=== PATIENT | female | born 1945 | race Caucasian/White ===

== ENCOUNTER 2017-12-09 16:47 | Inpatient (IN) | payer MEDICAID, OTHER ==
[~2017-12-09] VITALS: Ht 167.6 cm; Wt 103.0 kg
--- NOTE | 2017-12-09 16:47 | NUR ---
Pt placed in bed 1 by Fredrick ROLON
--- NOTE | 2017-12-09 16:50 | NUR ---
Patient resting, c/c of discomfort and swelling to left arm, left breast, and bilateral lower extremities. Patient came in by EMS. Patient has no notable signs of distress at this time. Vital signs are within normal limits. 121/69, 89 Hr, rr 17, and 96%. Patient daughter aware of ER visit.
--- NOTE | 2017-12-09 16:51 | NUR ---
ER at bedside examining patient.
[2017-12-09 16:57] VITALS: BP_SYST 204
[2017-12-09] MEDS ORDERED: ASPIRIN 81 MG TAB.CHEW PO ONE (17:00)
--- NOTE | 2017-12-09 17:01 | NUR ---
Patient refused aspirin at this time. Patient educated. Refused.
[2017-12-09 17:29] LABS: BASOPHILS % (AUTO) 0.6 % (0.0-2.0); EOSINOPHILS # (AUTO) 0.1 K/uL (0.0-0.4); EOSINOPHILS % (AUTO) 1.8 % (0.0-4.0); HEMATOCRIT 29.2 % (36-48); HEMOGLOBIN 9.1 g/dL (12.0-16.0); LYMPHOCYTES # (AUTO) 1.9 K/uL (1.0-5.5); MEAN CORPUSCULAR HEMOGLOBIN 28 pg (27-31); MEAN CORPUSCULAR HGB CONC 31 % (32-36); MEAN CORPUSCULAR VOLUME 91 fL (79.0-98.0); MONOCYTES # (AUTO) 0.5 K/uL (0.0-1.0); MONOCYTES % (AUTO) 7.7 % (1.7-9.3); NEUTROPHILS # (AUTO) 4.5 K/uL (1.8-7.7); NEUTROPHILS % (AUTO) 62.9 % (40.0-70.0); PLATELET COUNT (AUTO) 290 K/uL (130-430); RED BLOOD CELL COUNT(AUTO) 3.23 MIL/uL (4.2-6.2); RED CELL DISTRIBUTION WIDTH 14.1 % (9.0-15.0)
[2017-12-09 17:41] LABS: ANION GAP 5 (5-15); CALCIUM 8.4 mg/dL (8.4-11.0); CHLORIDE 111 mmol/L (98-107); CREATININE 0.95 mg/dL (0.55-1.30); GLUCOSE 117 mg/dL (70-99); POTASSIUM 3.6 mmol/L (3.5-5.1); SODIUM SERUM 144 mmol/L (136-145); UREA NITROGEN, BLOOD 22 mg/dL (8-21)
[2017-12-09 17:46] LABS: ALANINE AMINOTRANSFERASE 15 U/L (12-78); ALBUMIN 1.8 g/dL (3.4-4.8); ASPARTATE AMINOTRANSFERASE 21 U/L (10-37); LIPASE 86 U/L (73-393); TOTAL BILIRUBIN 0.4 mg/dL (0.0-1.0)
--- NOTE | 2017-12-09 18:40 | NUR ---
Patient resting comfortably. Needs are met at this time. Patient provided water, pillow, and blanket per patient request.
[2017-12-09] MEDS ORDERED: ONDANSETRON HCL 4 MG/2 ML VIAL IVP PRN (19:45)
--- NOTE | 2017-12-09 20:07 | NUR ---
ADMISSION NOTE Received patient from ER via fabi, received report from ELEAZAR LANCE. Patient admitted with diagnosis of CHF. Patient oriented to hospital routine, call light, toileting and safety-patient verbalized understanding.
[2017-12-09 20:14] VITALS: BP_SYST 194
--- NOTE | 2017-12-09 20:29 | NUR ---
Patient admitted to [address]. Patients daughters Tamiko and Smiley called to notify. Patient aware that Tamiko will be here tonight to visit. Patient updated on status and reason for admission.
--- NOTE | 2017-12-09 20:45 | NUR ---
Initial Notes Received patient resting in bed, awake, alert, oriented. Patient denies any acute distress or pain when asked. Vital signs stable, elevated blood pressure noted. Breathing is even and unlabored. Received patient from ER without IV access. Incontinence care and hygiene care provided. Educated patient regarding use of call light for assistance and fall precautions, patient verbalized understanding. Call light in hand, fall precautions in place. Will continue to monitor for changes and safety.
[2017-12-09] MEDS: FUROSEMIDE 20 MG TABLET PO SCH (20:47)
[2017-12-09] MEDS: METOPROLOL TARTRATE 25 MG TABLET PO SCH (20:47)
[2017-12-09] MEDS: NORMAL SALINE 5 ML DISP.SYRIN IVF SCH ×2 (20:48→21:39)
--- NOTE | 2017-12-09 20:54 | NUR ---
Consultation Called Reason for consultation: CHF Was consult called: Y Person who was notified: Tatiana Consulting Physician: Buck Brown Scrap Metal Collector Ordering Physician: Alisha Cooley
--- NOTE | 2017-12-09 22:00 | NUR ---
Nursing Notes Patient resting in bed, awake watching TV. Patient denies any acute distress or pain at this time. Breathing is even and unlabored. Attempted to start IV access unsuccessfully x2. Patient requesting IV to be started in the AM, educated patient importance of having IV access, patient continue to refuse at this time. Needs addressed. Call light in hand, fall precautions in place.
--- NOTE | 2017-12-10 | NUR ---
Nursing Notes Patient resting in bed with eyes closed, easily aroused. Patient denies any acute distress, pain, or needs at this time. Repositioned patient for comfort. Call light in hand, fall precautions in place.
[2017-12-10 00:11] VITALS: BP_SYST 185
--- NOTE | 2017-12-10 01:36 | NUR ---
MD Communications S/W Dr. Abraham regarding patient's elevated BP. Orders received. Will enter and carry out.
[2017-12-10] MEDS: cloNIDine HCL 0.1 MG TABLET PO PRN ×3 (01:51→20:46)
--- NOTE | 2017-12-10 02:16 | NUR ---
Nursing Notes Patient resting in bed, awake watching TV. Patient denies any acute distress or pain at this time. Breathing is even and unlabored. Medicated patient for elevated BP per MD orders. IV access obtained at right AC, #22, aseptic tech used, patent, good blood return noted, flushes with ease. Needs addressed. Call light in hand, fall precautions in place.
[2017-12-10 04:08] VITALS: BP_SYST 163
--- NOTE | 2017-12-10 04:42 | NUR ---
Nursing Notes Patient resting in bed with eyes closed, easily aroused. Patient denies any acute distress, breathing is even and unlabored. Repositioned patient for comfort. Needs addressed. Call light in hand, fall precautions in place. Will continue to monitor.
[2017-12-10] MEDS: NORMAL SALINE 5 ML DISP.SYRIN IVF SCH ×3 (05:17→23:21)
--- NOTE | 2017-12-10 06:35 | NUR ---
Closing Notes Patient resting in bed, awake. Patient denies any acute distress or pain when asked. Breathing is even and unlabored. IV site patent/clean/dry, no S/S infection/infiltration noted. Incontinence care provided. Needs addressed throughout shift. Call light in hand, fall precautions in place. Will continue to monitor for changes and safety, and endorse all patient care/needs to oncoming nurse.
[2017-12-10 06:57] LABS: BASOPHILS % (AUTO) 0.5 % (0.0-2.0); EOSINOPHILS # (AUTO) 0.2 K/uL (0.0-0.4); HEMATOCRIT 24.5 % (36-48); HEMOGLOBIN 7.8 g/dL (12.0-16.0); LYMPHOCYTES # (AUTO) 2.2 K/uL (1.0-5.5); MEAN CORPUSCULAR HEMOGLOBIN 29 pg (27-31); MEAN CORPUSCULAR HGB CONC 32 % (32-36); MEAN CORPUSCULAR VOLUME 90 fL (79.0-98.0); MONOCYTES # (AUTO) 0.6 K/uL (0.0-1.0); MONOCYTES % (AUTO) 10.2 % (1.7-9.3); NEUTROPHILS # (AUTO) 3.2 K/uL (1.8-7.7); NEUTROPHILS % (AUTO) 50.3 % (40.0-70.0); PLATELET COUNT (AUTO) 242 K/uL (130-430); RED BLOOD CELL COUNT(AUTO) 2.72 MIL/uL (4.2-6.2); RED CELL DISTRIBUTION WIDTH 14.4 % (9.0-15.0); WHITE BLOOD COUNT (AUTO) 6.2 K/uL (4.8-10.8)
[2017-12-10 07:03] LABS: ALANINE AMINOTRANSFERASE 11 U/L (12-78); ALBUMIN 1.4 g/dL (3.4-4.8); ANION GAP 6 (5-15); ASPARTATE AMINOTRANSFERASE 16 U/L (10-37); CALCIUM 7.9 mg/dL (8.4-11.0); CHLORIDE 113 mmol/L (98-107); CHOLESTEROL 124 mg/dL (<200); CREATININE 0.98 mg/dL (0.55-1.30); GLUCOSE 108 mg/dL (70-99); HDL CHOLESTEROL 56 mg/dL (>55); LDL CHOLESTEROL 53 mg/dL (<100); POTASSIUM 3.5 mmol/L (3.5-5.1); SODIUM SERUM 145 mmol/L (136-145); TOTAL BILIRUBIN 0.3 mg/dL (0.0-1.0); TRIGLYCERIDES 94 mg/dL (30-150); UREA NITROGEN, BLOOD 21 mg/dL (8-21)
--- NOTE | 2017-12-10 07:45 | NUR ---
A/Ox4, a-fib on monitor, HR 70s-80s. David ROMANO, #22, SL. On 2L NC. Instructed field representative/health education light, POC, and safety measures. Call light in place, bed locked at the lowest position, will continue to monitor. Call light in place, bed locked at the lowest position, will continue to monitor.
[2017-12-10 08:00] VITALS: BP_SYST 203
--- NOTE | 2017-12-10 08:11 | NUR ---
Nutrition Update Sammy Scale 14 noted. Pt admitted for CHF Diet: 2gm Na diet BMI: 36.8 kg/m2 RD to follow per nutrition care standards.
[2017-12-10] MEDS: METOPROLOL TARTRATE 25 MG TABLET PO SCH ×2 (08:32→20:42)
[2017-12-10] MEDS: FUROSEMIDE 20 MG TABLET PO SCH (08:33)
[2017-12-10] MEDS ORDERED: ASPIRIN 81 MG TAB.CHEW PO SCH (09:00)
[2017-12-10] MEDS ORDERED: ENOXAPARIN SODIUM 40 MG/0.4 ML SYRINGE SUBCUT SCH (09:00)
[2017-12-10] MEDS ORDERED: LISINOPRIL 10 MG TABLET (PRINIVIL) PO SCH (09:00)
--- NOTE | 2017-12-10 10:22 | NUR ---
[facility] consult called: for Dr. Russo, regarding CHF, ordered by Dr. Rodriguez, spoke with Monet.
--- NOTE | 2017-12-10 10:30 | NUR ---
Daughter at bedside to see patient. Current condition is informed to her.
--- NOTE | 2017-12-10 12:20 | NUR ---
Patient is eating lunch, no signs of distress noted.
[2017-12-10 12:30] VITALS: BP_SYST 118
[2017-12-10] MEDS: LEVOFLOXACIN 500 MG/D5W 100 ML IV SCH (13:25)
--- NOTE | 2017-12-10 14:40 | NUR ---
Patient had passed urine in the bed, and refused to be changed by PROTOTYPE CARPENTER and RN. She stated that " you guys have disrupted my sleep! It's my turn!". Also refused BP meds despite of systolic pressure at 190s. Will monitor closely.
[2017-12-10 15:03] VITALS: BP_SYST 198
--- NOTE | 2017-12-10 16:12 | NUR ---
Patient is cleaned and repositioned for comfort.
--- NOTE | 2017-12-10 18:12 | NUR ---
Patient is eating dinner, no signs of distress noted.
--- NOTE | 2017-12-10 19:25 | NUR ---
REPORT: RECEIVED BEDSIDE REPORT FROM ELEAZAR CASEY. PATIENT IN BED AWAKE ORIENTED X3.DENIES SOB NOR CHEST PAIN THIS TIME.
[2017-12-10 20:05] VITALS: BP_SYST 204
--- NOTE | 2017-12-10 20:10 | NUR ---
INITIAL NOTES: PATIENT COMPLAINING OF IV SALINE LOCK. THAT NOBODY CAN TOUCH HER IV UNLESS SHE OR HE IS GOOD AT IT.COMPLAINING ABOUT HER SWOLLEN LEFT EXTREMITIES AND LOWER LEGS .ASKING WHAT ALL DOCTORS ARE DOING TO HER. REASSURE AND EMOTIONAL SUPPORT PROVIDED. TEARFUL.REFUSING VITAL SIGNS TAKEN BUT ABLE TO CONVINCE HER. MOVES HER ARM WHILE BP TAKEN. ELEVATED EXPLAIN TO CALM DOWN. RETOOK STILL ELEVATED. EXPLAIN WILL GIVE DUE BP MEDS.BP 204/83 HR 68. 94% ROOM AIR. HAS MULTIPLE BRUISES TO UPPER ARMS, BLISTERS TO LOWER LEGS.CALL LIGHT WITHIN REACH ,BED IN LOW POSITION, SINUS RHYTHM THIS TIME. WILL MONITOR CLOSELY.PLACED EXTENSION TO SALINE LOCK ,GAINED CONFIDENCE FROM HER.
--- NOTE | 2017-12-10 20:40 | NUR ---
MEDS ADMIN: DUE MEDS GIVEN AFTER AN EXTENSIVE EXPLANATIONS OF EFFECTS AND SIDE EFFECTS OF EACH THEN AGREED TO TAKE THEM. REFUSE OXYGEN THIS TIME.
[2017-12-10] MEDS: FUROSEMIDE 40 MG/4 ML VIAL IVP SCH (20:41)
[2017-12-10] MEDS: APIXABAN 2.5 MG TABLET PO SCH (20:44)
[2017-12-10] MEDS ORDERED: FUROSEMIDE 20 MG TABLET PO SCH (21:00)
--- NOTE | 2017-12-10 21:10 | NUR ---
CONTINUE WATCHING TV SHOWS. DENIES SOB.
--- NOTE | 2017-12-10 22:00 | NUR ---
INCONTINENT OF URINE. REFUSE HYGIENE. SAID IF YOU ARE STILL HERE I WILL CALL THE THE POLICE.
--- NOTE | 2017-12-10 23:00 | NUR ---
RESTING QUIETELY BUT EASILY AROUSED. COMPLAINING OF TOO MUCH NOISE IN THE ROOM.
[2017-12-11 00:59] VITALS: BP_SYST 196
--- NOTE | 2017-12-11 01:35 | NUR ---
PATIENT AWAKENED.COMPLAIN OF HER ROOM MATE MOANING AND GROANING THUS CAN NOT SLEEP. BP 200/76. HR 58. CLONIDINE 0.1MG PO GIVEN. INCONTINENT OF URINE. REFUSE HYGIENE. SAID NEED A SLEEP.
--- NOTE | 2017-12-11 02:00 | NUR ---
ROOM MATE TRANSFERRED TO ANOTHER ROOM. PATIENT THANKFUL.
[2017-12-11] MEDS: cloNIDine HCL 0.1 MG TABLET PO PRN ×4 (02:19→21:44)
--- NOTE | 2017-12-11 04:00 | NUR ---
PATIENT RESTING QUITELY WITH EYES CLOSE. NO DISTRESS.
--- NOTE | 2017-12-11 05:25 | NUR ---
HYGIENE: PATIENT INCONTINENT OF URINE AND MOD.STOOL. AGREED TO BE CHANGED. Dnae SIMONSD APPLIED TO PERINEAL AREAS AND ABDOMINAL FOLDS REFUSING BP CHECKS.
[2017-12-11] MEDS: NORMAL SALINE 5 ML DISP.SYRIN IVF SCH ×3 (05:50→21:44)
--- NOTE | 2017-12-11 06:50 | NUR ---
CLOSING: NO ACUTE DISTRESS. HR WENT UP TO70- 80 WHILE AWAKE AND ACTIVITIES.REFUSING TO ANSWER QUESTIONS..LITTLE UPSET. WILL ENDORSE TO AM RN FOR FURTHER CARE.
--- NOTE | 2017-12-11 07:35 | NUR ---
spoke to MIMI DAUGHTER #[phone] ABOUT HOME MEDS TO BRING THEM FOR RECONCILIATION. STATED SHE WILL BRING THIS AM.
[2017-12-11] MEDS: FUROSEMIDE 40 MG/4 ML VIAL IVP SCH ×2 (08:09→21:40)
[2017-12-11] MEDS: METOPROLOL TARTRATE 25 MG TABLET PO SCH ×2 (08:10→21:41)
[2017-12-11] MEDS: APIXABAN 2.5 MG TABLET PO SCH ×2 (08:11→21:42)
[2017-12-11 08:13] LABS: ANION GAP 2 (5-15); CALCIUM 8.1 mg/dL (8.4-11.0); CHLORIDE 111 mmol/L (98-107); CREATININE 0.95 mg/dL (0.55-1.30); GLUCOSE 112 mg/dL (70-99); SODIUM SERUM 144 mmol/L (136-145); UREA NITROGEN, BLOOD 20 mg/dL (8-21)
[2017-12-11 08:20] VITALS: BP_SYST 212
--- NOTE | 2017-12-11 08:33 | NUR ---
OPENING NOTE REPORT IS RECEIVED FROM HAND FILER BALANCE WHEEL NURSE AND CARE IS ENDORSED TO MYSELF. PT IS RECEIVED AWAKE, ALERT, AND ORIENTED TO NAME, PLACE AND . MORNING VS SHOW ELEVATED HIGH BLOOD PRESSURE AND MORNING MEDICATIONS WERE GIVEN BY MOUTH ONE-BY-ONE AND TOLERATED WELL. WHITE BOARD IS UPDATED AND PLAN OF CARE IS DISCUSSED. PT HAS PITTING EDEMA IN LEFT ARM AND LEG. PT WAS REPOSITIONED TO LEFT SIDE. CURRENT NEEDS ARE MET. BED IS AT LOWEST POSITION, CALL LIGHT WITHIN REACH, THREE SIDE RAILS UP, BED ALARM IS ON. WILL CONTINUE TO MONITOR.
[2017-12-11] MEDS ORDERED: LISINOPRIL 10 MG TABLET (PRINIVIL) PO SCH (09:00)
[2017-12-11 09:54] LABS: BASOPHILS % (AUTO) 0.9 % (0.0-2.0); EOSINOPHILS # (AUTO) 0.1 K/uL (0.0-0.4); EOSINOPHILS % (AUTO) 2.8 % (0.0-4.0); HEMATOCRIT 26.2 % (36-48); HEMOGLOBIN 8.2 g/dL (12.0-16.0); LYMPHOCYTES # (AUTO) 2.3 K/uL (1.0-5.5); MEAN CORPUSCULAR HEMOGLOBIN 28 pg (27-31); MEAN CORPUSCULAR HGB CONC 31 % (32-36); MEAN CORPUSCULAR VOLUME 91 fL (79.0-98.0); MONOCYTES # (AUTO) 0.5 K/uL (0.0-1.0); MONOCYTES % (AUTO) 8.8 % (1.7-9.3); NEUTROPHILS # (AUTO) 2.3 K/uL (1.8-7.7); NEUTROPHILS % (AUTO) 43.5 % (40.0-70.0); PLATELET COUNT (AUTO) 248 K/uL (130-430); RED BLOOD CELL COUNT(AUTO) 2.89 MIL/uL (4.2-6.2); RED CELL DISTRIBUTION WIDTH 14.3 % (9.0-15.0); WHITE BLOOD COUNT (AUTO) 5.2 K/uL (4.8-10.8)
--- NOTE | 2017-12-11 10:51 | NUR ---
ROUNDS PT IS AWAKE AND ALERT. NO SIGNS OR SYMPTOMS OF DISTRESS OR SOB. PT DENIES ANY PAIN. CURRENT NEEDS ARE MET. BED IS AT LOWEST POSITION, CALL LIGHT WITHIN REACH, THREE SIDE RAILS UP, BED ALARM IS ON. WILL CONTINUE TO MONITOR.
[2017-12-11] MEDS: LEVOFLOXACIN 500 MG/D5W 100 ML IV SCH (11:03)
--- NOTE | 2017-12-11 11:16 | NUR ---
PT REFUSES PRN BLOOD PRESSURE MEDICATION PT HAS BEEN ADVISED OF ELEVATED BLOOD PRESSURE AND THE NEED FOR PRN CLONIDINE. PT REFUSED AFTER THREE ATTEMPTS OF TRYING TO GIVE BLOOD PRESSURE MEDICATION. MD MADE AWARE. CURRENT NEEDS ARE MET. BED IS AT LOWEST POSITION, CALL LIGHT WITHIN REACH, THREE SIDE RAILS UP, BED ALARM IS ON. WILL CONTINUE TO MONITOR.
[2017-12-11] MEDS ORDERED: METOLAZONE 5 MG TABLET PO ONE (11:30)
[2017-12-11 12:00] VITALS: BP_SYST 190
--- NOTE | 2017-12-11 12:05 | NUR ---
ROUNDS PT IS AWAKE AND ALERT. NO SIGNS OR SYMPTOMS OF DISTRESS OR SOB. PT ACCEPTED TO TAKE PRN CLONIDINE. WILL REASSESS BLOOD PRESSURE IN ONE HOUR. PT REFUSED TO BE REPOSITIONED EVEN AFTER BEING ADVISED OF BENEFITS OF CIRCULATION. CURRENT NEEDS ARE MET. BED IS AT LOWEST POSITION, CALL LIGHT WITHIN REACH, THREE SIDE RAILS UP, BED ALARM IS ON. WILL CONTINUE TO MONITOR.
--- NOTE | 2017-12-11 13:57 | NUR ---
PHYSICAL THERAPY CO-SIGN The Physical Therapy Progress Notes documented by Auricular Therapist have been reviewed. Reviewed/Co-Signed by: Bijal Hussein PT Documentation Done by: JAUN TANNER PTA PT WAS ABLE TO CLEAR BUTTOCKS OFF BED BUT STILL HAS WEAKNESS UNABLE TO COME TO A FULL UPRIGHT STATIC STANDING POSTURE. Addendum: 12/11/17 at 1358 by Bijal Hussein PT Amended: Links added.
--- NOTE | 2017-12-11 14:22 | NUR ---
ROUNDS PT IS SLEEPING. NO SIGNS OR SYMPTOMS OF DISTRESS OR SOB NOTED. PT WAS REPOSITIONED TO LEFT SIDE. CURRENT NEEDS ARE MET. BED IS AT LOWEST POSITION, CALL LIGHT WITHIN REACH, THREE SIDE RAILS UP, BED ALARM IS ON. WILL CONTINUE TO MONITOR.
[2017-12-11] MEDS ORDERED: POTASSIUM CHLORIDE 20 MEQ TAB.PRT.SR PO ONE (14:30)
[2017-12-11 16:20] VITALS: BP_SYST 208
--- NOTE | 2017-12-11 16:34 | NUR ---
ROUNDS PT IS AWAKE AND ALERT. NO SIGNS OR SYMPTOMS OF DISTRESS OR SOB NOTED. PT DENIES ANY PAIN. CURRENT NEEDS ARE MET. BED IS AT LOWEST POSITION, CALL LIGHT WITHIN REACH, THREE SIDE RAILS UP, BED ALARM IS ON. WILL CONTINUE TO MONITOR.
--- NOTE | 2017-12-11 18:57 | NUR ---
CLOSING NOTE PT IS IN BED RESTING. PT IS UPSET DUE TO DINNER NOT BEING WHAT SHE WANTED. KITCHEN CALLED AND ASKED FOR DIFFERENT FOOD BUT PT IS STILL UPSET. CURRENT NEEDS ARE MET. BED IS AT LOWEST POSITION, CALL LIGHT WITHIN REACH, THREE SIDE RAILS UP, BED ALARM IS ON. WILL CONTINUE TO MONITOR UNTIL CARE AND REPORT IS GIVEN TO RIGHT OF WAY SUPERVISOR NURSE.
--- NOTE | 2017-12-11 19:20 | NUR ---
OPENING NOTE Received report from Iris. Patient resting in bed awake, alert, oriented x4. Breathing unlabored and even on room air. No signs of distress. Fall and safety precautions in place. Bed in lowest position, brake on, alarm on, call light within reach. Patient upset and disagreeing with myself and day shift nurse about medication. Educated patient on the importance of taking her prescribed meds for her elevated BP. Patient finally took medication after much convincing. Patient upset and asking when the doctor will be here. Informed her MD will make rounds tomorrow. Will continue to monitor.
[2017-12-11] MEDS: SPIRONOLACTONE 25 MG TABLET (ALDACTONE) PO SCH (19:29)
[2017-12-11] MEDS ORDERED: SPIRONOLACTONE 25 MG TABLET (ALDACTONE) PO SCH (19:30)
[2017-12-11 20:00] VITALS: BP_SYST 210
--- NOTE | 2017-12-11 20:00 | NUR ---
family at the bedside
--- NOTE | 2017-12-11 21:49 | NUR ---
Med pass. Administered PRN clonodine PO for elevated BP.
--- NOTE | 2017-12-11 22:00 | NUR ---
Charge nurse Dalia at the bedside. Patient complaining that she cannot talk due to the medication I gave her. Patient is clearly talking without any issues.
--- NOTE | 2017-12-11 22:45 | NUR ---
Patient yelling from room that monitors are too loud. Informed her that the monitors cannot be turned off. Patient upset.
--- NOTE | 2017-12-11 23:00 | NUR ---
Patient constantly yelling from her bed. Addressed her concerns. Patient stated "Do you hear that?! That beeping is too loud and I cannot sleep. The doctor told me it needs to be shut off. You need to shut it off!" Informed patient that the beeping she hears is the heart monitors and that the beeping cannot be shut off. Patient continue to argue with me and insisted the MD told her we could turn off the monitors. Re-educated patient on the importance of the heart monitors. Offered patient ear plugs, patient reluctant to try them. Patient still loud and yelling. Informed patient she cannot be yelling and that other patients are trying to sleep. Patient states "YOU ARE THE ONE YELLING!!"
--- NOTE | 2017-12-11 23:40 | NUR ---
HAIR SPECIALIST attempted to do midnight vitals on patient. Patient refused. I then went in to educate patient on the importance of checking her vitals, especially her BP due to her severe hypertension and reminded her that I gave he BP meds and we need to see if they are working. Patient finally agreed to have vitals taken. Patient continues to make rude comments towards myself and the HAIR SPECIALIST.
[2017-12-12 00:18] VITALS: BP_SYST 209
--- NOTE | 2017-12-12 01:15 | NUR ---
Patient resting in bed with eyes closed. No signs of distress, no needs at this time. Fall and safety precautions in place. Bed in lowest position, brake on, alarm on, call light within reach. Bed in lowest position, brake on, alarm on, call light within reach. Will continue to monitor.
[2017-12-12] MEDS: NORMAL SALINE 5 ML DISP.SYRIN IVF SCH ×3 (06:10→20:56)
--- NOTE | 2017-12-12 07:20 | NUR ---
Opening Note: Patient laying in bed resting. Patient denies pain and discomfort. Breathing is even and unlabored with no distress noted. IV patent and intact and saline locked. Safety precautions in place; bed in lowest position, wheels locked, side rails x3, bed alarm activated and call light within reach. Will continue to monitor throughout shift.
[2017-12-12 08:13] VITALS: BP_SYST 199
[2017-12-12] MEDS: APIXABAN 2.5 MG TABLET PO SCH ×2 (08:20→20:49)
[2017-12-12] MEDS: METOPROLOL TARTRATE 25 MG TABLET PO SCH ×2 (08:21→20:48)
[2017-12-12] MEDS: SPIRONOLACTONE 25 MG TABLET (ALDACTONE) PO SCH (08:22)
[2017-12-12] MEDS: FUROSEMIDE 40 MG/4 ML VIAL IVP SCH ×2 (08:22→20:46)
[2017-12-12] MEDS: LISINOPRIL 20 MG TABLET PO SCH (08:22)
--- NOTE | 2017-12-12 10:15 | NUR ---
Rounding: Patient laying in bed resting, repositioned for comfort. No distress noted. No needs at this time. Will continue to monitor
[2017-12-12] MEDS: LEVOFLOXACIN 500 MG/D5W 100 ML IV SCH (10:34)
[2017-12-12] MEDS: FUROSEMIDE 100 MG in D5W 90 ML IV SCH (11:06)
[2017-12-12] MEDS: cloNIDine HCL 0.1 MG TABLET PO PRN ×2 (11:11→17:18)
[2017-12-12 12:00] VITALS: BP_SYST 215
--- NOTE | 2017-12-12 12:15 | NUR ---
Rounding: Patient laying in bed resting. Patient denies pain and discomfort. Breathing is even and unlabored with no distress noted. Morning medications tolerated well. Safety precautions in place. No needs at this time. Will continue to monitor.
--- NOTE | 2017-12-12 14:17 | NUR ---
Rounding: Patient laying in bed resting. Patient denies pain and discomfort. Breathing is even and unlabored with no distress noted. NO needs at this time. Will continue to monitor.
--- NOTE | 2017-12-12 15:08 | NUR ---
PHYSICAL THERAPY CO-SIGN The Physical Therapy Progress Notes documented by Commercial Service Technician have been reviewed. Reviewed/Co-Signed by: Bijal Hussein PT Documentation Done by: JAUN TANNER PERSONAL INJURY PARALEGAL PT CONTINUES TO DEMONSTRATE FUNCTIONAL THERA EX FOR TRUNKAL STABILIZATION, STILL LIMITED WITH STANDING ACTIVITY Addendum: 12/12/17 at 1509 by Bijal Hussein PT Amended: Links added.
[2017-12-12 15:19] LABS: ANION GAP 5 (5-15); CALCIUM 8.3 mg/dL (8.4-11.0); CHLORIDE 108 mmol/L (98-107); CREATININE 1.06 mg/dL (0.55-1.30); GLUCOSE 174 mg/dL (70-99); POTASSIUM 3.1 mmol/L (3.5-5.1); SODIUM SERUM 143 mmol/L (136-145); UREA NITROGEN, BLOOD 19 mg/dL (8-21)
--- NOTE | 2017-12-12 16:10 | NUR ---
Rounding: Patient laying in bed resting. Patient denies pain and discomfort. Breathing is even and unlabored with no distress noted. IV lasix drip running per MD order, no signs of infiltration. Safety precautions in place. No needs at this time. Will continue to monitor.
[2017-12-12 16:15] VITALS: BP_SYST 187
--- NOTE | 2017-12-12 17:18 | NUR ---
Clonidine Given: BP elevated 187/94. Administered Clonidine PRN per MD order.
--- NOTE | 2017-12-12 18:43 | NUR ---
Closing Note: Patient laying in bed resting. Patient denies pain and discomfort. Breathing is even and unlabored with no distress noted. IV patent and intact running Lasix drip per MD order. Safety precautions in place; bed in lowest position, wheels locked, side rails x3, bed alarm activated and call light within reach. All needs met. Will endorse plan of care to NOC, nurse.
--- NOTE | 2017-12-12 19:25 | NUR ---
REPORT: RECEIVED BEDSIDE REPORT FROM ELEAZAR VÁZQUEZ.PATIENT IN BED AWAKE ORIENTED X3,MOVES RIGHT EXTREMITIES ONLY. CONVERSANT.
[2017-12-12 19:45] VITALS: BP_SYST 208
--- NOTE | 2017-12-12 19:45 | NUR ---
INITIAL NOTES: VITAL SIGNS TAKEN. BP ELEVATED DENIES HEADACHE NOR PAIN. VERY ANXIOUS ABOUT SWELLING TO ARMS AND LEG THAT ARE NOT SUBSIDING.CLONIDINE NOT DUE. WILL MONITOR CLOSELY. HAVING SNACKS. DAUGHTER JUST CAME FOR VISITS AND BROUGHT SOME CANDIES AND CRACKERS. CONVERSED FOR 1/2 AN HOUR LEFT DUE TO PATIENT IS GETTING AGITATED. LEFT ARM 3+SWOLLEN WELL BOTH LOWER LEGS.HEPARIN DRIP INFUSING AT 5ML/HR =5MG /HR. TO RFA SITE WITH SMALL BRUISE. CALL LIGHT WITHIN REACH. BED IN LOW POSITION. DISCUSSED HAVING POT TABLET FOR LOW K LEVEL.AGREE TO TAKE THIS TIME.SINUS SHI CARDIA ,BBB,IST DEGREE AV BLOCK.COMPLAINING ABOUT TREATMENTS NOT WORKING.REASSURANCES AND EMOTIONAL SUPPORT PROVIDED.
[2017-12-12] MEDS: POTASSIUM CHLORIDE 20 MEQ TAB.PRT.SR PO SCH (20:45)
--- NOTE | 2017-12-12 20:45 | NUR ---
MEDS ADMIN: ALL DUE MEDS GIVEN WITHOUT DIFFICULTY AFTER EXPLAINING INDICATIONS OF EACH .
--- NOTE | 2017-12-12 21:15 | NUR ---
HYGIENE: PARTIAL BATH DONE WITH JOHANNA CARE .HAD STOOL AND URINE INCONTINENCE. Dane SARABIA APPLIED.
--- NOTE | 2017-12-12 22:30 | NUR ---
WATCHING TV SHOWS,COMPLAINING OF ROOM MATE TOO NOISY.
--- NOTE | 2017-12-13 | NUR ---
POTASSUIM: PATIENT REFUSE 2ND DOSE POTASSUIM PO DUE TO STOMACH UPSET. DISCUSSED NEED OF IT DUE TO LOW K LEVEL.YELLED AT RN SAYING I TOLD YOU I DONT WANT IT .I DONT CARE ,I WANT TO SLEEP.
[2017-12-13 00:23] VITALS: BP_SYST 198
--- NOTE | 2017-12-13 01:50 | NUR ---
BP ELEVATED: PATIENT AWAKENED DUE TO ROOM MATE NOISE. BP 191/77 HR 56 SAT 96%. REFUSING CLONIDINE BUT ABLE TO CONVINCE DUE TO SMALL PILL. SAID WHO EVER ORDERED THAT PILL IT DOES NOT WORK, MY BP IS ALWAYS HIGH. TOOK PILL AFTER.
[2017-12-13] MEDS: cloNIDine HCL 0.1 MG TABLET PO PRN ×2 (01:55→11:42)
--- NOTE | 2017-12-13 02:30 | NUR ---
AWAKENED DUE TO ROOM MATE NOISE. OFFERED POTASSUIM PO. GOT UPSET WITH LOUD VOICE SAYING I TOLD YOU IM NOT TAKING THAT BIG PILLS ITS UPSET MY STOMACH. OFFERED CRACKERS.REFUSE MEDS AND SNACKS.
[2017-12-13] MEDS: FUROSEMIDE 100 MG in D5W 90 ML IV SCH (03:15)
--- NOTE | 2017-12-13 04:25 | NUR ---
ROUNDS: PATIENT CONTINUE TO SLEEP. ON ROOM AIR. LASIX DRIP INFUSING WELL. CALL LIGHT WITHIN REACH.
--- NOTE | 2017-12-13 05:20 | NUR ---
WOKE PATIENT UP. GOT VERY UPSET. OFFERED POTASSUIM PO AND HYGIENE ,TOTALLY REFUSED BOTH.
[2017-12-13] MEDS: NORMAL SALINE 5 ML DISP.SYRIN IVF SCH ×3 (05:52→21:26)
--- NOTE | 2017-12-13 06:12 | NUR ---
Pagerolo Dueñas, regional account manager for Dr. Rodriguez dialed [phone], s/w Soumya
--- NOTE | 2017-12-13 06:22 | NUR ---
DR. HILARIO CALLED BACK.NOTIFIED MD ABOUT PATIENT REFUSING 2ND DOSE OF POTASSUIM PO AT MIDNIGHT AND NO LABS ORDERED. MD ORDER LABS THIS MORNING. INFORMED LAB TO DRAW.
--- NOTE | 2017-12-13 06:40 | NUR ---
RENTAL CAR FERRY DRIVER PARVIZ LOONEY LABS ORDERED.
--- NOTE | 2017-12-13 06:45 | NUR ---
CLOSING: SEEN PATIENT AFTER LAB DRAW.OFFERED HYGIENE AND POTASSUIM PO. STILL REFUSE. ALL NEEDS WERE ATTENDED BUT FEW REFUSES.NO ACUTE CARDIOPULMONARY DISTRESS. LASIX DRIP IN PROGRESS ,SITE CLEAR.REFUSE TO BE CHANGED UNDER PADS.CALL LIGHT NEAR BY. BED IN LOW POSITION. REFUSE VITAL SIGNS TAKEN THIS TIME. WILL ENDORSE TO AM RN FOR CONTINUITY OF CARE.
[2017-12-13 07:27] LABS: CALCIUM 8.1 mg/dL (8.4-11.0); CHLORIDE 108 mmol/L (98-107); CREATININE 1.04 mg/dL (0.55-1.30); GLUCOSE 123 mg/dL (70-99); UREA NITROGEN, BLOOD 17 mg/dL (8-21)
[2017-12-13 08:00] VITALS: BP_SYST 166
--- NOTE | 2017-12-13 08:00 | NUR ---
Opening Note received report from skin care specialist RN, pt resting in bed, A&Ox4, respirations even and unlabored on room air, pt denies any pain, no acute distress noted, IV site clean, dry, and intact, tele monitor in place, pt educated on use of call light and asked to call for assistance, pt verbalized understanding, call light in reach, bed in low position, bed alarm on, room close to nurses station, fall and aspiration precautions in place.
[2017-12-13 08:26] LABS: ANION GAP 3 (5-15); SODIUM SERUM 143 mmol/L (136-145)
--- NOTE | 2017-12-13 08:50 | NUR ---
Rounds Dr. Rodriguez at beside speaking with ptMD made aware of AM lab of potassium 3.0.
[2017-12-13] MEDS: LISINOPRIL 20 MG TABLET PO SCH (08:51)
[2017-12-13] MEDS: METOPROLOL TARTRATE 25 MG TABLET PO SCH (08:51)
[2017-12-13] MEDS: SPIRONOLACTONE 25 MG TABLET (ALDACTONE) PO SCH (08:51)
[2017-12-13] MEDS: FUROSEMIDE 40 MG/4 ML VIAL IVP SCH ×2 (08:52→21:22)
[2017-12-13] MEDS: APIXABAN 2.5 MG TABLET PO SCH ×2 (08:52→21:23)
--- NOTE | 2017-12-13 09:04 | NUR ---
Rapid Response pts heart rate 184 BPM, BP 204/111, pt anxious, complaint of chest pain, pt appears restless, no shortness of breath, respirations 19, called rapid response. Rapid response team at bedside, Dr. Michael sheth MD aware of rapid response, Dr. Jerardo headley. Blood sugar 158, EKG ordered. Dr. Rodriguez ordered morphine 2mg, cardizem 10mg IV given, BP 204/111 prior to cardizem administration. HR went down to 130 after administration of cardizem. Pt relaxed, no acute distress noted, assessed pt for chest pain, pt stated, "just get out". Heart rate 113 BPM, will continue to monitor pt.
--- NOTE | 2017-12-13 09:11 | NUR ---
WOODWIND INSTRUMENT REPAIRER, DR CAMACHO WAS PAGED, RE: ELEVATED/HIGH HR (UNCONTROLLED AFIB WITH RVR). SPOKE TO BERNARDO
[2017-12-13] MEDS ORDERED: LORazepam 2 MG/ML VIAL IVP ONE (09:15)
[2017-12-13] MEDS ORDERED: DILTIAZEM HCL 25 MG/5 ML VIAL IVP ONE (09:15)
[2017-12-13] MEDS ORDERED: MORPHINE 2 MG/ML INJ. SYRINGE IVP ONE (09:15)
[2017-12-13] MEDS ORDERED: MAGNESIUM SULFATE 50 ML IV ONE ×2 (09:15→14:15)
[2017-12-13] MEDS: POTASSIUM CHLORIDE 20 MEQ TAB.PRT.SR PO SCH ×3 (09:15→13:15)
[2017-12-13] MEDS ORDERED: LORazepam 2 MG/ML VIAL ONE (09:18)
[2017-12-13] MEDS ORDERED: MORPHINE 2 MG/ML INJ. SYRINGE ONE (09:20)
--- NOTE | 2017-12-13 09:55 | NUR ---
RN Rounds pt resting in bed, A&Ox4, no acute distress noted, pt requesting to be left alone, HR 110 on cloth finishing range operator chief, fall and aspiration precautions in place.
--- NOTE | 2017-12-13 10:15 | NUR ---
Refused meds pt refusing potassium replacement for potassium 3.0, pt educated on use and side effects of potassium replacement, pt refusing, pt stated "come back later", fall and aspiration precautions in place.
--- NOTE | 2017-12-13 10:35 | NUR ---
Education/Refused medication pt BP 181/106, PRN catapres indicated, pt educated on use and side effects of PRN catapres, pt refusing medication, pt educated on use and side effects of potassium replacement, pt refusing potassium replacement, fall and aspiration precautions in place.
--- NOTE | 2017-12-13 10:46 | NUR ---
Spoke with pts daughter spoke with pts daughter, Tamiko, updated her on pts plan of care, educated Tamiko on importance of PRN catapres for elevated BP and potassium replacement, Tamiko spoke with pt, pt refusing medication at this time, pt stated "leave me alone, come back later", fall and aspiration precautions in place.
--- NOTE | 2017-12-13 11:19 | NUR ---
Spoke with Spoke with Dr. Rodriguez, made MD aware of pt BP 181/106, HR 111, potassium 3.0, and that pt is refusing PRN BP medication and potassium replacement, no new orders.
[2017-12-13] MEDS ORDERED: NOR10 PO (11:23)
[2017-12-13] MEDS ORDERED: APIX5TAB4 PO (11:23)
[2017-12-13] MEDS ORDERED: METF1000 PO (11:23)
[2017-12-13] MEDS ORDERED: FERR-69 PO (11:23)
[2017-12-13] MEDS ORDERED: ASPIRIN PO (11:23)
[2017-12-13] MEDS ORDERED: HYDR-4039 PO (11:23)
[2017-12-13] MEDS ORDERED: CAT.1 PO (11:23)
[2017-12-13] MEDS ORDERED: LISI-600 PO (11:23)
[2017-12-13] MEDS ORDERED: LIP20 PO (11:23)
[2017-12-13] MEDS: LEVOFLOXACIN 500 MG/D5W 100 ML IV SCH (11:29)
--- NOTE | 2017-12-13 11:33 | NUR ---
Medication pt educated on use and side effects of levaquin, pt verbalized understanding, tolerating medication administration well, no redness or swelling noted at IV site, fall and aspiration precautions in place.
--- NOTE | 2017-12-13 11:44 | NUR ---
Blood Pressure/Medication pt current BP 185/70, PRN catapres indicated, pt educated on use and side effects of PRN catapres, pt verbalized understanding, pt tolerated medication administration well, pt educated on potassium replacement, pt refusing potassium replacement at this time, fall and aspiration precautions in place.
[2017-12-13 12:05] VITALS: BP_SYST 181
--- NOTE | 2017-12-13 12:13 | NUR ---
MD Rounds Rounds with Dr. Rodriguez, informed MD of rapid response this AM for pt HR in 180's, BP 204/111, informed MD of latest BP 185/70, HR 68, and that PRN catapres was given, no new orders.
--- NOTE | 2017-12-13 12:27 | NUR ---
Rounds Rounds with Dr. Rodriguez, change in medication orders, orders for lisinopril 20mg PO once now, verified with read back. Addendum: 12/13/17 at 1234 by Meena Young RN add: per Dr. Rodriguez, keep pt on polo kirk, insert burroughs catheter for measurement of urine output
[2017-12-13] MEDS ORDERED: LISINOPRIL 20 MG TABLET PO ONE (12:30)
[2017-12-13] MEDS ORDERED: AMIODARONE HCL 200 MG TABLET PO ONE (12:30)
--- NOTE | 2017-12-13 12:50 | NUR ---
Burroughs Catheter Refused pt made aware of MD order for burroughs catheter, pt educated on use and purpose of burroughs catheter for measurement of urine output, pt refusing burroughs catheter placement at this time, fall and aspiration precautions in place.
--- NOTE | 2017-12-13 13:20 | NUR ---
Medication/Burroughs catheter refusal pt educated on medication use and side effects, pt verbalized understanding, pt tolerated medication administration well, pt informed of MD order for burroughs catheter, pt educated on use and purpose of burroughs catheter for urine output monitoring, pt refusing burroughs catheter insertion, fall and aspiration precautions in place.
[2017-12-13] MEDS ORDERED: POTASSIUM CHLORIDE 40 MEQ in NS 250 ML IV ONE (14:00)
--- NOTE | 2017-12-13 14:55 | NUR ---
Spoke with spoke with Dr. Karan MD made aware that magnesium IV has been given this AM, orders to d/c second dose.
--- NOTE | 2017-12-13 15:00 | NUR ---
Medication pt educated on medication use and side effects, pt verbalized understanding, pt tolerating medication administration well, no redness or swelling noted at IV site, IV compatibility verified with pharmacist, no acute distress noted, fall and aspiration precautions in place.
--- NOTE | 2017-12-13 15:15 | NUR ---
Notes pt incontinent of bladder, voided x1, pt changed and repositioned, pt tolerated well, no acute distress noted, fall and aspiration precautions in place.
[2017-12-13 16:05] VITALS: BP_SYST 159
--- NOTE | 2017-12-13 17:30 | NUR ---
RN Rounds pt resting in bed, respirations even and unlabored on room air, no acute distress noted, pt denies any pain, fall and aspiration precautions in place.
--- NOTE | 2017-12-13 19:10 | NUR ---
MD Rounds Rounds with Dr. Rodriguez, made MD aware of pt history of DM, fingersticks ACHS and insulin regular per sliding scale ordered, verified with read back.
--- NOTE | 2017-12-13 19:15 | NUR ---
Closing Note pt resting in bed, A&Ox4, respirations even and unlabored on room air, pt denies any pain or shortness of breath, no acute distress noted, IV site clean, dry, intact, and infusing well, no redness or swelling noted at IV site, tele monitor in place, pt educated on use of call light and asked to call for assistance, pt verbalized understanding, call light in reach, bed in low position, bed alarm on, room close to nurses station, fall and aspiration precautions in place. Addendum: 12/13/17 at 1939 by Meena Young RN add: care endorsed to Nia BUSH.
--- NOTE | 2017-12-13 19:25 | NUR ---
CHANGE OF SHIFT: pt. awake on sitting position, alert. On Lasix drip @ 5ml/hr and K rider infusing via rt. forearm. left arm swollen, elevated on pillow. bilateral lower extremities with scabs and dry blisters, upper arms with bruising. noted left sided weakness due to CVA , speech clear. pt. incontinent, refused burroughs cath insertion. on fall risks, fall precautions, bed alarm on, call light within reach.
[2017-12-13 20:00] VITALS: BP_SYST 164
--- NOTE | 2017-12-13 20:00 | NUR ---
NOTES: assessed pt. , informed plan of care. off O@, O2 sat 96%. denies any chest pain nor any discomfort at this time. been watching tv. on bed rest, side rails up. cardiac pattern on sinus rhythm with 1st degree AVB/BBB. call light within reach.
[2017-12-13] MEDS: CARVEDILOL 12.5 MG TABLET (COREG) PO SCH (21:24)
[2017-12-13] MEDS: INSULIN REGULAR, HUMAN 100 UNITS/ML, 10 ML VIAL (novoLIN R) SUBCUT PRN (21:31)
--- NOTE | 2017-12-13 22:30 | NUR ---
NOTES: still awake, pretty calm and resting.
[2017-12-14] VITALS: BP_SYST 136
--- NOTE | 2017-12-14 00:35 | NUR ---
NOTES: continue to monitor. pt. asleep.
[2017-12-14] MEDS: FUROSEMIDE 100 MG in D5W 90 ML IV SCH (01:45)
--- NOTE | 2017-12-14 03:00 | NUR ---
NOTES: pt. checked, eating and ready to be changed now. complete am care and sera care done and applied Z angeli on reddened /irritated skin on bilateral buttocks and in between her inner thighs. kept dry. both legs edematous. left arm elevated with pillow and repositioned on her rt. side after. condition observed.
--- NOTE | 2017-12-14 06:00 | NUR ---
NOTES: remain on Lasix drip @ 5 ml/hr. no c/o shortness of breath nor pain. pt. needs attended. for further assistance.
[2017-12-14] MEDS: NORMAL SALINE 5 ML DISP.SYRIN IVF SCH ×2 (06:12→13:48)
--- NOTE | 2017-12-14 06:45 | NUR ---
CLOSING NOTES; BS checked 155. condition unchanged. fall risks. side rails up, fall precautions observed. call light within reach.
[2017-12-14 06:52] LABS: ANION GAP 3 (5-15); CALCIUM 8.4 mg/dL (8.4-11.0); CHLORIDE 108 mmol/L (98-107); CREATININE 1.23 mg/dL (0.55-1.30); GLUCOSE 161 mg/dL (70-99); POTASSIUM 3.1 mmol/L (3.5-5.1); SODIUM SERUM 143 mmol/L (136-145); UREA NITROGEN, BLOOD 21 mg/dL (8-21)
[2017-12-14] MEDS: INSULIN REGULAR, HUMAN 100 UNITS/ML, 10 ML VIAL (novoLIN R) SUBCUT PRN ×2 (07:11→12:19)
--- NOTE | 2017-12-14 07:15 | NUR ---
endorsed pt. to incoming shift with nurse Gonzalez.
[2017-12-14 08:06] VITALS: BP_SYST 195
--- NOTE | 2017-12-14 08:35 | NUR ---
OPENING NOTE: MORNING REPORT WAS TAKEN FROM [employer] SPECIALIST NURSE AT 0715. PATIENT IS ALERT AND ORIENTED X4. VITALS AND MORNING ASSESSMENT WAS DONE PATIENT SITTING EATING BREAKFAST IN BED. PATIENT NOT COMPLAINING OF SHORTNESS OF BREATH. PATIENT ON ROOM AIR. IV PATENT AND INFUSING FLUIDS. PATIENT NOT COMPLAINING OF NAUSEA OR VOMITING. PATIENT NOT COMPLAINING OF CONSTIPATION. PATIENT AGITATED AND COMPLAINING BECAUSE SHE DIDNT GET ANY SAUSAGE OR TESFAYE FOR BREAKFAST. PATIENT WANTS TO TALK TO GUM COOK. PATIENT'S BLOOD PRESSURE ELEVATED AND TRIED TO GET HER TO RELAX BUT REFUSED. PATIENT'S LEFT ARM SWOLLEN ALONG WITH BOTH LEGS. PATIENT HAS LEFT SIDED WEAKNESS. PATIENT NOT REALLY ABLE TO MOVE LEFT SIDE. BED ALARM IS ON AND BED IN LOWEST POSITION. CALL LIGHT IS IN REACH AND BSIDE RAILS ARE UP. WILL CONTINUE TO MONITOR.
[2017-12-14] MEDS ORDERED: LISINOPRIL 20 MG TABLET PO SCH (09:00)
[2017-12-14] MEDS ORDERED: AMIODARONE HCL 200 MG TABLET PO SCH (09:00)
--- NOTE | 2017-12-14 09:16 | NUR ---
DCP. MET WITH PATIENT. A/O. LIVES WITH SPOUSE AND GRANDSON 21 Y.O. IN A 2 SH. DCP INITIATED. PLAN FOR DC TO SNF FOR SHORT TERM REHAB, CARDIO MEDS ADJUSTED BY DR HILL. CONTINUE TO DIURESE/ LASIX. FAXED TO [facility] , AWAITING FOR A BED. ARNULFO ALTAMIRANO RN/CM
[2017-12-14] MEDS: FUROSEMIDE 40 MG/4 ML VIAL IVP SCH (09:35)
[2017-12-14] MEDS: CARVEDILOL 12.5 MG TABLET (COREG) PO SCH (09:38)
[2017-12-14] MEDS: SPIRONOLACTONE 25 MG TABLET (ALDACTONE) PO SCH (09:38)
[2017-12-14] MEDS: APIXABAN 2.5 MG TABLET PO SCH (09:40)
--- NOTE | 2017-12-14 09:50 | NUR ---
NOTE: PATIENT TALKING AND TALKING. GAVE PATIENT MORNING MEDICATIONS. PATIENT SWALLOWED WITH VANILLA PUDDING. NO DIFFICULTIES SWALLOWING. PATIENT KEEPS TALKING SAYING SHE WANTS MORE FOOD. CALLED DIETARY TO BRING HER MUFFIN. EDUCATED PATIENT ON WHY SHE CANT HAVE SAUSAGE OR TESFAYE BUT PATIENT STUBBORN AND SAID I CAN HAVE WHAT I WANT AND SHE WILL TELL HER DAUGHTER TO BRING IT. WILL CONTINUE TO MONITOR.
--- NOTE | 2017-12-14 10:45 | NUR ---
PATIENT REFUSED TO BE TURNED AND CLEANED UP. Addendum: 12/14/17 at 1058 by Lisa Cadena RN RECHECKED PATIENT'S BLOOD PRESSURE AND WAS 148/90. PATIENT EATING TESFAYE. SAID DAUGHTER BROUGHT IT. TOLD PATIENT SHE ISNT SUPPOSE TO EAT THAT BUT PATIENT SAID IM GOING TO EAT WHAT I WANT TO EAT.
[2017-12-14] MEDS ORDERED: amLODIPine BESYLATE 10 MG TABLET PO ONE (11:30)
[2017-12-14] MEDS ORDERED: FUROSEMIDE 40 MG TABLET PO ONE (11:30)
[2017-12-14] MEDS: POTASSIUM CHLORIDE 20 MEQ TAB.PRT.SR PO SCH ×2 (12:00→16:00)
--- NOTE | 2017-12-14 12:00 | NUR ---
DC Plan: [employer] has faxed DC order to [employer] ([phone]), special agent group insurance.
[2017-12-14 12:14] VITALS: BP_SYST 167
[2017-12-14] MEDS: LEVOFLOXACIN 500 MG/D5W 100 ML IV SCH (12:16)
--- NOTE | 2017-12-14 12:20 | NUR ---
NOTE: TOOK PATIENT'S BLOOD SUGAR AND WAS 165. INSULIN GIVEN TO COVER. RECHECKED BP AND WAS 184/62. GAVE PATIENT SCHEDULED MEDICATIONS AND BP MEDS. PATIENT HAS ANTIBIOTIC INFUSING. IV LASIX WAS DISCONTINUED. PATIENT STILL AGITATED SAYING NOTHING GETTING DONE. TOLD HER SHE MIGHT BE LEAVING BUT PATIENT SAID SHE DOESNT WANT TO GO. HELPED SET UP PATIENT'S LUNCH TRAY. WILL CONTINUE TO MONITOR.
--- NOTE | 2017-12-14 13:00 | NUR ---
Wound Evaluation: Wound Consult ordered for Low Sammy Score. Patient evaluated for a low Sammy score of 12. Patient was awake, alert, oriented, and received in a Daquan Bed with an IsoFlex SHARONDA mattress. Patient needs assist to turn in bed secondary to left-sided weakness. Skin is fair (-); General body area is edematous. Recommend encourage and assist patient with repositioning every 2 hours with pillow support. Elevate, off-load and float bilateral heels with pillows. Offload pressure areas with pillows for pressure re-distribution. Perform skin care and monitor skin integrity Q shift. Use moisture barrier cream on moisture susceptible areas QID and PRN for soiling. Initiate low air-loss therapy. Will continue to follow as a Sammy.
--- NOTE | 2017-12-14 13:43 | NUR ---
NOTE: PATIENT ASLEEP IN BED. PATIENT DISCONNECTED FROM IV. FLUSHED IV. WILL CONTINUE TO MONITOR.
--- NOTE | 2017-12-14 14:22 | NUR ---
Dietitian Recommendations * Recommend continuing 2 gm Na diet per MD * Encourage increase PO intakes * Assistance w/ selecting menus LP, RD Please refer to Nutrition Assessment for details.
--- NOTE | 2017-12-14 14:42 | NUR ---
PATIENT REFUSED TO BE TURNED. PATIENT DIDNT WANT LEGS ELEVATED. CHANGED BATTERIES ON TELE BOX. GOT PATIENT NEW TRASH BAG. WILL CONTINUE TO MONITOR.
--- NOTE | 2017-12-14 16:20 | NUR ---
DCP. DC TO SNF FOR P.[facility]. [facility] [address] [phone]. FOR SHORT TERM REHAB . RM [address] . [phone]. ARNULFO ALTAMIRANO [phone] CALLED TO [facility] AT [phone], UNABLE TO LEAVE MESSAGE. CALLED [phone]. NO ANSWER. CALLED [phone] PT. ANSWERED THE PHONE. PT IS A/O. SHE MAKES HER OWN DECISION.SHE AGREED FOR SNF.
[2017-12-14 16:29] VITALS: BP_SYST 158
--- NOTE | 2017-12-14 17:04 | NUR ---
PCP APPOINTMENT FOLLOW UP RE- CHF PROTOCOL WITHIN 7 DAYS POST DISCHARGE PT MADE AN APPOINTMENT TO SEE DR CHARLES ADAMES PATIENT'S PRIMARY CARE PHYSICIAN ON Nov AT 2PM. DR ADAMES'S OFFICE LOCATED AT [address] [place] [id number]. SPOKE TO RODNEY FROM PCP'S OFFICE AND MADE THE APPOINTMENT FOR PATIENT. NESTOR CASEY AND PATIENT MADE AWARE OF THE APPOINTMENT.
--- NOTE | 2017-12-14 17:10 | NUR ---
NOTE: TALKED TO PATIENT ABOUT DISCHARGE HOME. PATIENT DIDNT WANT TO LEAVE TODAY. CONVINCED PATIENT TO LEAVE BUT AGREED TO LATER DISCHARGE. PATIENT'S SUGAR WAS TAKEN AND WAS 136. WILL GIVE PATIENT TRANSFER ACKNOWLEDGEMENT AND APPOINTMENT CARD.
--- NOTE | 2017-12-14 17:32 | NUR ---
AMBULANCE ARRANGEMENT MADE CALLED [facility] [id number] [facility] AT SPOKE WITH LAURY TO MAKE AMBULANCE ARRANGEMENT FOR A 2100 TA[address] TIME.
--- NOTE | 2017-12-14 18:04 | NUR ---
CLOSING NOTE: GAVE REPORT TO ESTEVAN AT [facility]. PATIENT SIGNED TRANSFER ACKNOWLEDGEMENT. PATIENT IN BED ON ROOM AIR. PATIENT NOT COMPLAINING OF PAIN OR SHORTNESS OF BREATH. PATIENT ON ROOM AIR. IV PATENT AND SALINE LOCKED. WENT OVER BELONGINGS WITH PATIENT. BED IS IN LOWEST POSITION WITH CALL LIGHT IN REACH. WILL CONTINUE TO MONITOR AND SUSTAINABLE AGRICULTURE FACULTY REPORT TO NIGHT NURSE.
--- NOTE | 2017-12-14 19:20 | NUR ---
MARIA R CABEZAS AT BEDSIDE. DAUGHTER MADE AWARE THAT PATIENT HAS DR APPOINTMENT NEXT SUNDAY (12/20) AT 2PM.
[2017-12-14 19:33] VITALS: BP_SYST 158
--- NOTE | 2017-12-14 19:45 | NUR ---
FINISHED PACKED AND PRINTED. ENDORSED TO [facility] TO GET IT SIGNED BY PATIENT BEFORE DISCHARGE.
--- NOTE | 2017-12-14 19:45 | NUR ---
ROUNDS PATIENT IN BED, AWAKE, ALERT, ORIENTED, VITALS STABLE, DENIES ANY PAIN AND DISCOMFORT AT THIS TIME. ASSESSMENT DONE AND DOCUMENTED. SEE FLOWSHEET. PATIENT BEING PREPARED FOR DISCHARGE TO [facility]. NEEDS ATTENDED TO. FAMILY AT THE BEDSIDE. TRANSFER OF CARE INSTRUCTIONS RECEIVED AND SIGNED BY PATIENT. WILL CONTINUE TO MONITOR.
[2017-12-14] MEDS ORDERED: FUROSEMIDE 40 MG TABLET PO SCH (21:00)
--- NOTE | 2017-12-14 21:00 | NUR ---
CLOSING NOTES PATIENT DISCHARGED TO [facility] VIA AMBULANCE WITH STABLE VITAL SIGNS. ALL NEEDS ATTENDED TO. SAFETY MEASURES MAINTAINED. TRANSFER OF CARE INSTRUCTIONS GIVEN AND PATIENT VERBALIZED UNDERSTANDING.
[2017-12-15] MEDS ORDERED: amLODIPine BESYLATE 10 MG TABLET PO SCH (09:00)
== END 2017-12-14 21:00 | DRG 291 ==
LOC: SED 16:47 → STU 19:43
PROVIDERS: ADMIT Internal Medicine; ATTEND Internal Medicine
DX: I11.0 Hypertensive heart disease with heart failure (principal); E43 Unspecified severe protein-calorie malnutrition; I69.354 Hemiplegia and hemiparesis following cerebral infarction affecting left non-dominant side; I50.33 Acute on chronic diastolic (congestive) heart failure; F17.210 Nicotine dependence, cigarettes, uncomplicated; E11.9 Type 2 diabetes mellitus without complications; I48.0 Paroxysmal atrial fibrillation; E78.5 Hyperlipidemia, unspecified; I16.0 Hypertensive urgency; D64.9 Anemia, unspecified; I27.20 Pulmonary hypertension, unspecified; G47.33 Obstructive sleep apnea (adult) (pediatric); M24.412 Recurrent dislocation, left shoulder; E66.01 Morbid (severe) obesity due to excess calories; Z74.01 Bed confinement status; Z90.710 Acquired absence of both cervix and uterus; Z68.36 Body mass index [BMI] 36.0-36.9, adult; Z88.0 Allergy status to penicillin
CPT/HCPCS: 36415; 71045; 80048; 80053; 80061; 82550-TC; 82962; 83605; 83690-TC; 83735-TC; 83880; 84484; 85025; 85610-TC; 85730-TC; 87040-TC; 93005; 93306; 93970; 93971; 97110-GP; 97530-GP; 99285; J1650; J1815; J1940; J1956; J2060; J2270; J3475; J3480; J7050; J7060